=== PATIENT | male | born 1955 | race Caucasian/White ===

== ENCOUNTER 2016-12-08 15:24 | Emergency (ER) | payer BC ==
[2016-12-08 17:09] LABS: Hematocrit 42 % (42-52); Hemoglobin 13.9 g/dl (14.0-18.0); Mean Corpuscular HGB Conc 33 g/dl (31-36); Mean Corpuscular Hemoglobin 31 pg (27-31); Mean Corpuscular Volume 95 fL (80-94); Mean Platelet Volume 9 um3 (7.4-10.4); Red Blood Count 4.44 10^6/ul (4.0-5.4); Red Cell Distribution Width 13 % (10.5-15); White Blood Count 7.6 10^3/ul (3.5-10.8)
[2016-12-08 17:23] LABS: Albumin 3.9 g/dL (3.2-5.2); BUN/Creatinine Ratio 13.3 (8-20); Calcium 8.9 mg/dL (8.6-10.3); EGFR African American 60.8 (>60); EGFR Non-African American 47.3 (>60); Potassium 4.5 mmol/L (3.5-5.0); Total Bilirubin 0.4 mg/dL (0.2-1.0); Total Protein 6.9 g/dL (6.4-8.9)
[2016-12-08 17:52] VITALS: BP 135/87
--- NOTE | 2016-12-08 18:04 | ED ---
I, Oh,Soohyun, scribed for Justin Duncan MD on 12/08/16 at 1626 . HPI Chest Pain - HPI Summary HPI Summary: This 61 y/o male presents to ED for chest discomfort since 1500 PM today. Positive "anxiety-like", jittery feeling, elevated blood pressure. Pt was outdoor sitting on deck smoking cigar. Positive diaphoresis, mild dizziness, and mild nausea. present at bedside reports pallor Negative SOB, arthralgia , rash, or DAVILA. He was able to tolerate walking/jogging this morning without problem. Pt assumed that nicotine from cigar may have something to do with his symptoms today. Positive recent stressor which involves having to put one of his dogs down. No recent weight gain/loss. PMHx includes herniated disc and renal insufficiency. Primary care involves Dr. Torres at [place]. Pt is UTD with stress test and last one was benign. - History of Current Complaint Chief Complaint: EDChestPainROMI Time Seen by Provider: 12/08/16 16:14 Hx Obtained From: Patient, Medical Records Onset/Duration: Atraumatic, Resolved Timing: Constant Pain Intensity: 0 Pain Scale Used: 0-10 Numeric Chest Pain Location: Diffuse Chest Pain Radiates: No Aggravating Factor(s): Nothing Alleviating Factor(s): Nothing Associated Signs and Symptoms: Positive: Chest Pain, Diaphoresis, Nausea. Negative: Shortness of Breath, Fever, Palpitations, Vomiting - Allergy/Home Medications Allergies/Adverse Reactions: Allergies Allergy/AdvReac Type Severity Reaction Status Date / Time Sulfa Antibiotics Allergy Intermediate Itching Verified 02/20/16 08:46 PMH/Surg Hx/FS Hx/Imm Hx Endocrine/Hematology History: Reports: Other Endocrine/Hematological Disorders - "kidney function abnormality" Sensory History: Reports: Hx Contacts or Glasses - READING Denies: Hx Hearing Aid Opthamlomology History: Reports: Hx Contacts or Glasses - READING - Surgical History Surgery Procedure, Year, and Place: 35 YRS AGO TOOTH REMOVED. 2004 SINUS SURGERY [facility] Hx Anesthesia Reactions: No Infectious Disease History: No Infectious Disease History: Denies: Traveled Outside the [place] in Last 30 Days - Family History Known Family History: Positive: Cardiac Disease - MS to mother , Hypertension - Positive to sister - Social History Alcohol Use: Weekly Alcohol Amount: 7-10 BEERS/WEEK Hx Substance Use: No Substance Use Type: Reports: None Hx Tobacco Use: Yes Smoking Status (MU): Former Smoker Type: Cigarettes, Cigars Amount Used/How Often: 1 1/2 PPD FOR 15 YRS Length of Time of Smoking/Using Tobacco: 15 YRS Have You Smoked in the Last Year: Yes - HAS AN OCCASIONAL CIGAR, DOES NOT INHALE Review of Systems Positive: Skin Diaphoresis. Negative: Fever Positive: Chest Pain - chest discomfort. Negative: Palpitations Negative: Shortness Of Breath Positive: Nausea - mild Negative: Arthralgia Neurological: Other - Positive for mild lightheadedness Negative: Headache, Syncope Positive: Anxious All Other Systems Reviewed And Are Negative: Yes Physical Exam - Summary Physical Exam Summary: The patient is well-nourished in no acute distress and in no acute pain. The skin is warm and dry and skin color reflects adequate perfusion. HEENT: The head is normocephalic and atraumatic. The pupils are equal and reactive. The conjunctivae are clear and without drainage. Nares are patent and without drainage. Mouth reveals moist mucous membranes and the throat is without erythema and exudate. The external ears are intact. The ear canals are patent and without drainage. The tympanic membranes are intact. Neck is supple with full range of motion and non-tender. There are no carotid bruits. There is no neck vein distension. Respiratory: Chest is non-tender. Lungs are clear to auscultation and breath sounds are symmetrical and equal. Cardiovascular: Heart rate is bradycardic. No reproducible chest pain. There is no murmur or rub auscultated. There is no peripheral edema and pulses are symmetrical and equal. Abdomen: The abdomen is soft and non-tender. There are normal bowel sounds heard in all four quadrants and there is no organomegaly palpated. Musculoskeletal: There is no back pain noted. Extremities are non-tender with full range of motion. There is good capillary refill. There is no peripheral edema or calf tenderness elicited. Neurological: Patient is alert and oriented to person, place and time. The patient has symmetrical motor strength in all four extremities. Cranial nerves are grossly intact. Deep tendon reflexes are symmetrical and equal in all four extremities. Psychiatric: The patient is mildly anxious. Triage Information Reviewed: Yes Vital Signs On Initial Exam: Initial Vitals Temp Pulse Resp BP Pulse Ox 96.8 F 66 16 152/95 99 12/08/16 15:25 12/08/16 15:25 12/08/16 15:25 12/08/16 15:25 12/08/16 15:25 Vital Signs Reviewed: Yes Diagnostics - Vital Signs Vital Signs Temp Pulse Resp BP Pulse Ox 12/08/16 15:25 96.8 F 66 16 152/95 99 - Laboratory Lab Results: Lab Results 12/08/16 12/08/16 12/08/16 Range/Units 16:59 16:59 16:59 WBC 7.6 (3.5-10.8) 10^3/ul RBC 4.44 (4.0-5.4) 10^6/ul Hgb 13.9 L (14.0-18.0) g/dl Hct 42 (42-52) % MCV 95 H (80-94) fL MCH 31 (27-31) pg MCHC 33 (31-36) g/dl RDW 13 (10.5-15) % Plt Count 143 L (150-450) 10^3/ul MPV 9 (7.4-10.4) um3 Neut % (Auto) 75.9 (38-83) % Lymph % (Auto) 16.5 L (25-47) % Geary % (Auto) 4.6 (1-9) % Eos % (Auto) 1.9 (0-6) % Baso % (Auto) 1.1 (0-2) % Absolute Neuts (auto) 5.8 (1.5-7.7) 10^3/ul Absolute Lymphs (auto) 1.3 (1.0-4.8) 10^3/ul Absolute Monos (auto) 0.4 (0-0.8) 10^3/ul Absolute Eos (auto) 0.1 (0-0.6) 10^3/ul Absolute Basos (auto) 0.1 (0-0.2) 10^3/ul Absolute Nucleated RBC 0 10^3/ul Nucleated RBC % 0 Sodium 133 (133-145) mmol/L Potassium 4.5 (3.5-5.0) mmol/L Chloride 103 (101-111) mmol/L Carbon Dioxide 24 (22-32) mmol/L Anion Gap 6 (2-11) mmol/L BUN 20 (6-24) mg/dL Creatinine 1.50 H (0.67-1.17) mg/dL Est GFR ( Amer) 60.8 (>60) Est GFR (Non-Af Amer) 47.3 (>60) BUN/Creatinine Ratio 13.3 (8-20) Glucose 134 H (70-100) mg/dL Lactic Acid 1.3 (0.5-2.0) mmol/L Calcium 8.9 (8.6-10.3) mg/dL Total Bilirubin 0.40 (0.2-1.0) mg/dL AST 19 (13-39) U/L ALT 15 (7-52) U/L Alkaline Phosphatase 42 (34-104) U/L Troponin I 0.00 (<0.04) ng/mL B-Natriuretic Peptide ( - 100) pg/mL Total Protein 6.9 (6.4-8.9) g/dL Albumin 3.9 (3.2-5.2) g/dL Globulin 3.0 (2-4) g/dL Albumin/Globulin Ratio 1.3 (1-3) 12/08/16 Range/Units 16:59 WBC (3.5-10.8) 10^3/ul RBC (4.0-5.4) 10^6/ul Hgb (14.0-18.0) g/dl Hct (42-52) % MCV (80-94) fL MCH (27-31) pg MCHC (31-36) g/dl RDW (10.5-15) % Plt Count (150-450) 10^3/ul MPV (7.4-10.4) um3 Neut % (Auto) (38-83) % Lymph % (Auto) (25-47) % Geary % (Auto) (1-9) % Eos % (Auto) (0-6) % Baso % (Auto) (0-2) % Absolute Neuts (auto) (1.5-7.7) 10^3/ul Absolute Lymphs (auto) (1.0-4.8) 10^3/ul Absolute Monos (auto) (0-0.8) 10^3/ul Absolute Eos (auto) (0-0.6) 10^3/ul Absolute Basos (auto) (0-0.2) 10^3/ul Absolute Nucleated RBC 10^3/ul Nucleated RBC % Sodium (133-145) mmol/L Potassium (3.5-5.0) mmol/L Chloride (101-111) mmol/L Carbon Dioxide (22-32) mmol/L Anion Gap (2-11) mmol/L BUN (6-24) mg/dL Creatinine (0.67-1.17) mg/dL Est GFR ( Amer) (>60) Est GFR (Non-Af Amer) (>60) BUN/Creatinine Ratio (8-20) Glucose (70-100) mg/dL Lactic Acid (0.5-2.0) mmol/L Calcium (8.6-10.3) mg/dL Total Bilirubin (0.2-1.0) mg/dL AST (13-39) U/L ALT (7-52) U/L Alkaline Phosphatase (34-104) U/L Troponin I (<0.04) ng/mL B-Natriuretic Peptide 39 ( - 100) pg/mL Total Protein (6.4-8.9) g/dL Albumin (3.2-5.2) g/dL Globulin (2-4) g/dL Albumin/Globulin Ratio (1-3) Result Diagrams: 12/08/16 16:59 12/08/16 16:59 Lab Statement: Any lab studies that have been ordered have been reviewed, and results considered in the medical decision making process. - EKG 1546 Cardiac Rate: Bradycardia - at 57 bpm EKG Rhythm: Sinus Bradycardia Re-Evaluation - Re-Evaluation First Eval Re-Evaluation Time: 17:41 Change: Improved Comment: MD in room to re-evaluate pt. Chest Pain Course/Dx - Course Assessment/Plan: This 61 y/o male presents to ED for acute chest discomfort for which pt describes as "jittery feeling". Pt states that he was able to tolerate walking/jogging in the morning without any problem, and was sitting down on porch smoking cigar at the time of onset. Pt states that he suspects nicotine as the cause of his symptoms, but decided to check in ED to r/o cardiac etiologies. EKG is wnl. Bloodwork was wnl with negative trop. Upon re- evaluation pt is noted pleasant with resolved symptoms. Pt is discharged with outpatient f/u with his PCP. - Chest Pain Differential Diagnosis/HQI/PQRI: Acute MS, Other: - adverse reaction to cigar smoke, depression - Diagnoses Provider Diagnoses: Anxiety Discharge - Discharge Plan Condition: Stable Disposition: HOME Patient Education Materials: Anxiety (ED) Referrals: Kyaw Mina MD [Primary Care Provider] - 2 Days The documentation as recorded by the Aime haynes Soohyun accurately reflects the service I personally performed and the decisions made by me, Justin Duncan MD.
== END 2016-12-08 17:51 | disposition home or self-care (01) ==
LOC: ED 15:24
DX: F41.9 Anxiety disorder, unspecified (principal); R07.9 Chest pain, unspecified; R11.0 Nausea; Z87.891 Personal history of nicotine dependence
CPT/HCPCS: 36415; 80053; 83605; 83880; 84484; 85025; 93005; 99282